=== PATIENT | male | born 1945 | race Two or more races ===

== ENCOUNTER → 2018-06-12 | Outpatient (CLI) | payer BC ==
[~2018-06-12] MED LIST: IOHEXOL 240 MG/ML 50ML VIAL. ONE; IOHEXOL 300 MG/ML 75 ML VIAL. ONE
[2018-06-12 11:09] LABS: ALBUMIN 3.8 g/dL (3.4-5.0); CALCIUM 9.7 mg/dL (8.5-10.1); GFR 73.7; PHOSPHORUS 4.3 mg/dL (2.6-4.7); POTASSIUM 4.5 mmol/L (3.5-5.1)
[2018-06-12] MEDS: IOHEXOL 300 MG/ML 75 ML VIAL. IV ONE (12:24)
[2018-06-12] MEDS: IOHEXOL 240 MG/ML 50ML VIAL. PO ONE (12:25)
--- NOTE | 2018-06-12 13:22 | RAD ---
CT ABD PELV W/ORAL IV CONTRAST Indication: Hydronephrosis Technique: Postcontrast CT imaging was performed of the abdomen pelvis, multiplanar reconstruction images submitted. Oral contrast was also given. One or more of the following individualized dose reduction techniques were utilized for this examination: 1. Automated exposure control 2. Adjustment of the mA and/or kV according to patient size 3. Use of iterative reconstruction technique. Comparison: None Findings: There is fairly severe right and moderate to severe left hydroureteronephrosis, ureters extending to the inferior pelvic region and not fully included on this exam. The inferior aspect of the urinary bladder is also not fully included as there is cystocele present. Urinary bladder is somewhat distended. There is no calculus of either kidney or ureter. There is some thinning of the cortex superior right kidney. There is no perinephric fluid collection. No discrete renal mass is identified. There is no abnormality limited visualized lung bases. There is a small hypodense lesion of the lateral left lobe of liver about 0.3 cm too small to accurately characterize. There is a 1 cm probable cyst near the dome of the liver. Gallbladder is present without obvious intraluminal abnormality by CT. No focal abnormality is identified of the spleen or pancreas. There are couple of likely accessory spleens located more anteriorly left upper quadrant of abdomen. Bowel is not dilated. There is no free fluid or free air. Appendix is not clearly identified if still present. There are scattered small nonspecific mesenteric and retroperitoneal nodes, no significantly enlarged nodes identified. There is osteoarthritic change of the right hip. There is facet degenerative change greater inferiorly of the lumbar spine. There is suspected mild to moderate spinal stenosis at L4-5. IMPRESSION: 1. There is fairly severe right greater than left hydroureteronephrosis with extent of the ureters beyond the inferior aspect of exam, also the inferior aspect of the urinary bladder not included as there is cystocele. Urinary bladder is somewhat distended. Electronically signed by: Nain Page MD (06/12/2018 1:19 PM) [id number]
== END | disposition home or self-care (01) ==
LOC: CT 09:32
PROVIDERS: ATTEND Family Medicine
DX: N13.30 Unspecified hydronephrosis (principal); N32.89 Other specified disorders of bladder; M16.11 Unilateral primary osteoarthritis, right hip; M47.816 Spondylosis without myelopathy or radiculopathy, lumbar region
CPT/HCPCS: 36415; 74177; 80069; Q9966; Q9967

== ENCOUNTER → 2019-02-04 | Outpatient (CLI) | payer BC, MEDICARE ==
--- NOTE | 2019-02-04 13:57 | RAD ---
Bilateral renal ultrasound compared to CT scan of the abdomen dated June 12, 2018 for hydronephrosis. Technique and findings: Real-time grayscale and color Doppler evaluation of the kidneys and urinary bladder is performed. The right kidney measures 10.0 x 4.9 x 5.0 cm and the left measures 9.6 x 5.1 x 4.7 cm. The left kidney is difficult to visualize due to overlying bowel gas. There is dilatation of the calyces bilaterally consistent with hydronephrosis. No perinephric fluid. The renal pelvises are nondistended. Overall degree of calyceal dilatation is stable compared to the patient's prior CT scan, and may be chronic. Urinary bladder is fluid distended and bilateral ureteral jets are present. IMPRESSION: 1. Hydronephrosis with dilatation of the calyces but no definite dilatation of the renal pelvises. Findings appear chronic and unchanged from the prior CT scan and may reflect physiologic caliectasis. Electronically signed by: Jose Farr MD (02/04/2019 1:54 PM) [id number]
== END | disposition home or self-care (01) ==
LOC: US 13:02
PROVIDERS: ATTEND Urology
DX: N13.30 Unspecified hydronephrosis (principal)
CPT/HCPCS: 76770